=== PATIENT | female | born 1985 ===

== ENCOUNTER → 2024-05-30 14:11 | Outpatient (BNVA) | payer MEDICAID, SELFPAY | PROVIDERS: PCP Nurse Practitioner Family; Visit Provider Nurse Practitioner Family | DX: R53.83 Other fatigue (principal); Z79.899 Other long term (current) drug therapy; Z13.6 Encounter for screening for cardiovascular disorders; E55.9 Vitamin D deficiency, unspecified | CPT/HCPCS: 80053; 80061; 80074; 81003; 82306; 83036; 84443; 85025; 87806 ==

== ENCOUNTER 2024-06-20 08:54 | Outpatient (CLI) | payer MEDICAID, SELFPAY ==
--- NOTE | 2024-06-20 09:00 | US_ITS ---
WS: [id number] THYROID ULTRASOUND HISTORY: R13.10 - Dysphagia, unspecified COMPARISON: None available. Right lobe: 1.3 cm x 1.8 cm x 4.4 cm (w x ap x l). Volume: 4.7 cm3. Mildly enlarged heterogeneous thyroid. Heterogeneity throughout the gland with several small pseudo n odules and echogenic fibrous septa. Mild increased vascularity. Left lobe: 1.1 cm x 1.6 cm x 3.8 cm (w x ap x l). Volume: 3.3 cm3. Normal sized gland with diffuse heterogeneity. Small pseudo nodules and echogenic fibrous septa. No i ncreased vascularity. Isthmus: 0.2 cm. US/US thyroid [id number] IMPRESSION: 1. TI-RADS 1: No discrete nodules for which biopsy should be recommended. 2. 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
== END 2024-06-20 08:55 | disposition home or self-care (01) ==
PROVIDERS: PCP Nurse Practitioner Family; Visit Provider Nurse Practitioner Family
DX: E03.9 Hypothyroidism, unspecified (principal); R13.10 Dysphagia, unspecified
CPT/HCPCS: 76536

== ENCOUNTER → 2025-01-21 14:30 | Outpatient (BNVA) | payer MEDICAID, SELFPAY | PROVIDERS: PCP Nurse Practitioner Family; Visit Provider Emergency Medicine | DX: E03.9 Hypothyroidism, unspecified (principal) | CPT/HCPCS: 84443 ==

== ENCOUNTER → 2025-03-21 10:38 | Outpatient (BNVA) | payer MEDICAID, SELFPAY | PROVIDERS: PCP Nurse Practitioner Family; Visit Provider Nurse Practitioner Family | DX: E06.3 Autoimmune thyroiditis (principal) | CPT/HCPCS: 84439; 84443 ==